=== PATIENT | male | born 1975 ===

== ENCOUNTER → 2016-12-17 | Outpatient (CLI) | payer OTHER | LOC: COL.RAD 09:40 | DX: R74.0 Nonspecific elevation of levels of transaminase and lactic acid dehydrogenase [LDH] (principal) ==

== ENCOUNTER 2021-02-23 14:05 | Emergency (ER) | payer OTHER ==
[~2021-02-23] VITALS: Ht 185.4 cm; Wt 88.6 kg
[2021-02-23 14:42] VITALS: TEMP 97.9
[2021-02-23] MEDS ORDERED: AMOXICILLIN 8751 TAB PO (15:39)
[2021-02-23 16:01] VITALS: BP 117/61; PULSE 64
== END 2021-02-23 16:01 | disposition home or self-care (01) ==
LOC: COL.ER 14:05
DX: S81.852A Open bite, left lower leg, initial encounter (principal); Z23 Encounter for immunization; W54.0XXA Bitten by dog, initial encounter

== ENCOUNTER 2021-02-26 07:08 | Outpatient (RCR) | payer OTHER ==
[~2021-02-26 07:08] MED LIST: AMOXICILLIN 8751 TAB PO
[2021-03-02 10:03] VITALS: BP 135/79; PULSE 74; TEMP 97.3
== END 2021-03-03 ==
LOC: EUO → COL.ER 16:08 → EUO 17:01
DX: S81.852A Open bite, left lower leg, initial encounter (principal); W54.0XXA Bitten by dog, initial encounter; Z20.3 Contact with and (suspected) exposure to rabies